=== PATIENT | female | born 1945 | race Caucasian/White ===

== ENCOUNTER 2017-03-18 07:27 | Day surgery (SDC) | payer MEDICARE ==
[~2017-03-18] VITALS: Ht 154.9 cm; Wt 58.0 kg
[~2017-03-18 07:27] MED LIST: BACITRACIN OINT 500U/GM, 15 GM ONE; EPINEPHRINE 1 MG/ML, 1ML ONE; EPINEPHRINE TOPICAL SOLN 1 MG/ML, 30ML ONE; FLUORESCEIN OPHTHALMIC 1 MG STRIP ONE; FLUT9.9S NAS; LIDOCAINE/PF 1%, 30ML ONE; LOSA25TA5 PO; LOVA40TA2 PO; MULT1TAB60 PO; OXYMETAZOLINE NASAL SPRAY 0.05%, 15ML ONE; VITAMIN B12 PO; [UNRECOGNIZED DRUG - CODE] PO
[2017-03-18 07:40] VITALS: BP 174/84
[2017-03-18] MEDS ORDERED: LACTATED RINGERS 1,000 ML IV SCH (08:08)
[2017-03-18] MEDS ORDERED: FENTANYL PF 500 MCG/10ML ONE (09:49)
[2017-03-18] MEDS ORDERED: ONDANSETRON 2MG/ML, 2ML IVPush PRN (10:00)
[2017-03-18] MEDS ORDERED: hydrALAzine 20 MG/ML, 1ML IV PRN (10:00)
[2017-03-18] MEDS ORDERED: FENTANYL PF 100 MCG/2ML IV PRN (10:00)
[2017-03-18] MEDS ORDERED: PROMETHAZINE 25 MG/ML, 1ML IV PRN (10:00)
[2017-03-18] MEDS ORDERED: LABETALOL 5MG/ML, 20ML IV PRN (10:00)
[2017-03-18] MEDS ORDERED: OXYcodone 5 MG/5 ML ORAL.SOL UDC PO PRN (10:00)
[2017-03-18] MEDS ORDERED: HYDROmorphone 1 MG/ML, 1ML IV PRN (10:00)
[2017-03-18] MEDS ORDERED: MIDAZOLAM 1 MG/ML, 2ML IV PRN (10:00)
[2017-03-18] MEDS ORDERED: OXYcodone 5 MG/5 ML ORAL.SOL UDC ONE (11:15)
[2017-03-18] MEDS ORDERED: SUCCINYLCHOLINE 20 MG/ML, 10ML ONE (16:25)
[2017-03-18] MEDS ORDERED: PHENYLEPHRINE 10 MG/ML ONE (16:25)
[2017-03-18] MEDS ORDERED: GLYCOPYRROLATE 0.2MG/1ML ONE (16:25)
[2017-03-18] MEDS ORDERED: METOCLOPRAMIDE 5 MG/ML, 2ML ONE (16:25)
[2017-03-18] MEDS ORDERED: ROCURONIUM 10 MG/ML ONE (16:25)
[2017-03-18] MEDS ORDERED: PROPOFOL 10 MG/ML, 20ML ONE (16:25)
[2017-03-18] MEDS ORDERED: ONDANSETRON 2MG/ML, 2ML ONE (16:25)
[2017-03-18] MEDS ORDERED: DEXAMETHASONE 4 MG/ML, 1ML ONE (16:25)
[2017-03-18] MEDS ORDERED: CEFAZOLIN 1,000 MG ONE (16:25)
== END 2017-03-18 14:10 ==
LOC: OUT 07:27
PROVIDERS: ATTEND Otolaryngology
DX: J32.9 Chronic sinusitis, unspecified (principal); J33.9 Nasal polyp, unspecified; J34.2 Deviated nasal septum; I10 Essential (primary) hypertension
CPT/HCPCS: 31254; 31256; 31276; 61782; 88304; 88305; 88331; J0171; J0330; J0690; J1100; J2370; J2405; J2704; J2765; J3010; J3490

== ENCOUNTER → 2018-06-16 | Outpatient (CLI) | payer MEDICARE ==
[~2018-06-16] MED LIST changes: -BACITRACIN OINT 500U/GM, 15 GM ONE; -EPINEPHRINE 1 MG/ML, 1ML ONE; -EPINEPHRINE TOPICAL SOLN 1 MG/ML, 30ML ONE; -FLUORESCEIN OPHTHALMIC 1 MG STRIP ONE; -LIDOCAINE/PF 1%, 30ML ONE; -LOSA25TA5 PO; +LOSA25TA6 PO; -OXYMETAZOLINE NASAL SPRAY 0.05%, 15ML ONE
== END | disposition home or self-care (01) ==
LOC: CFH 14:38
PROVIDERS: ATTEND Nurse Practitioner
DX: Z12.31 Encounter for screening mammogram for malignant neoplasm of breast (principal); Z80.3 Family history of malignant neoplasm of breast
CPT/HCPCS: 77067